=== PATIENT | male | born 1975 | race African-American/Black ===

== ENCOUNTER 2020-02-27 22:41 | Inpatient (IN) ==
[2020-02-27] MEDS ORDERED: ACETAMINOPHEN 1,000 MG/100 ML VIAL IV STA (22:54)
[2020-02-27] MEDS ORDERED: DEXAMETHASONE SOD INJ 10 MG/ML VIAL IV ONE (22:56)
[2020-02-27] MEDS ORDERED: ALBUTEROL HFA 8 GM INHALER INH ONE (22:56)
[2020-02-27] MEDS ORDERED: SODIUM CHLORIDE 0.9% 1000ML 1,000 ML IV ONE (23:14)
--- NOTE | 2020-02-27 23:24 | Emergency Department Note ---
History of Present Illness General Chief complaint: Shortness of Breath/Dyspnea Stated complaint: ILLNESS, WEAKNESS, COUGH, CHEST DISCOMFORT Time Seen by Provider: 02/27/20 22:48 History of Present Illness This 44-year-old presents to the ER complaining of respiratory problems Location: Chest Quality: Breathing Severity: Moderate Duration: Past 6 days Timing: Started 6 days ago Context: Symptoms got worse and patient came in Modifying factors: better with rest; worse with activity Patient complains of loss of taste, loss of smell, cough, congestion, fever, chills, flulike illness. The is mildly sick. He is a garbage truck driver. He has been driving up to [place] and [facility] and resides in [place]. Patient does not smoke. Patient has diabetes blood pressure and a history of CVA. He is noncompliant with medications. Home Medications Medication Instructions Recorded Confirmed Type aspirin [Ela Chewable Aspirin] 81 mg PO DAILY 02/28/20 02/28/20 History Allergies Allergy/AdvReac Type Severity Reaction Status Date / Time No Known Allergies Allergy Unverified 02/28/20 00:53 Past Med/Surg History Medical History Diabetes High blood pressure Surgical History No pertinent past surgical history Social History Smoking Status: Never smoker Hx Substance Use: No Preferred Language: Belarusian Feels Safe at Home: Yes Review of Systems A total of 10 systems reviewed and were otherwise negative Physical Exam Vital Signs Vital Signs - 24 hr 02/27/20 23:15 02/27/20 23:40 02/28/20 00:57 Temperature 39.1 C H Temperature Source Oral Pulse Rate 99 H 100 H 90 Pulse Rate from SpO2 Sensor 100 H 90 Respiratory Rate 26 H 28 H 28 H Respiratory Effort / Characteristics Accessory Muscle Use Short of Breath Blood Pressure 134/90 117/75 Blood Pressure Mean 104 89 Pulse Oximetry 95 94 93 Oxygen Delivery Method Non-rebreather Oxygen Flow Rate 15 15 15 Sepsis Recent Fever Within 48 Hours Yes Sepsis New/Unexplained Change in Mental Status N/A Sepsis Action Taken by Nursing No Action Required 02/28/20 01:00 02/28/20 01:01 Temperature Temperature Source Pulse Rate 85 83 Pulse Rate from SpO2 Sensor 86 84 Respiratory Rate 28 H 28 H Respiratory Effort / Characteristics Blood Pressure 133/81 Blood Pressure Mean 95 Pulse Oximetry 94 94 Oxygen Delivery Method Non-rebreather Oxygen Flow Rate 15 15 Sepsis Recent Fever Within 48 Hours Sepsis New/Unexplained Change in Mental Status Sepsis Action Taken by Nursing VITALS: Vitals are noted on the nurse's note and reviewed by myself. Vital signs febrile and hypoxic on room air and patient was placed on nonrebreather and sats came up. GENERAL: Male who appears ill working to breathe coughing SKIN: The skin was without rashes, erythema, edema, or bruising. There is no tenting of the skin. Capillary reflex less than 2 seconds. HEAD: Normocephalic atraumatic. EARS: External auditory canals clear, tympanic membranes pearly durant without erythema or effusion bilaterally. EYES: Pupils equal round and reactive to light and accommodation. Conjunctivae without injection, sclerae without icterus. Extraocular movements intact. NOSE: Patent, turbinates without inflammation or discharge. No sinus tenderness. MOUTH: Mucous membranes mildly dry. Pharynx without erythema or exudate. Uvula midline. Airway patent. Tongue does not deviate. NECK: Supple without nuchal rigidity. No lymphadenopathy. No thyromegaly. Cervical spine is nontender. No JVD. HEART: Regular rate and rhythm LUNGS: Mild diffuse inspiratory and end expiratory wheezes, No retractions or accessory muscle use. ABDOMEN: Positive bowel sounds x 4. Normal tympanic percussion. Soft, nontender, without masses or organomegaly. Quintero sign negative. No guarding or rebound tenderness. No CVA tenderness MUSCULOSKELETAL: No muscle atrophy, erythema, or edema noted. NEURO: Patient was alert and oriented to person place and time. Normal sensation to light and sharp touch. No focal neurological deficits. Course Administered Medications Discontinued Medications Albuterol (Albuterol Hfa 8 Gm Inhaler) 2 puffs INH NOW ONE Stop: 02/27/20 22:57 Last Admin: 02/27/20 23:34 Dose: 2 puffs Documented by: [id number] Dexamethasone (Dexamethasone Sod Inj 10 Mg/Ml Vial) 6 mg IV NOW ONE Stop: 02/27/20 22:57 Last Admin: 02/27/20 23:34 Dose: 6 mg Documented by: [id number] Acetaminophen (Ofirmev) 1,000 mg in 100 mls @ 400 mls/hr IV NOW STA Stop: 02/27/20 23:08 Last Admin: 02/27/20 23:34 Dose: 400 mls/hr Documented by: [id number] Sodium Chloride (Nss 1000ml) 1,000 mls @ 999 mls/hr IV .Q1H1M ONE Stop: 02/28/20 00:14 Last Admin: 02/28/20 00:20 Dose: 999 mls/hr Documented by: [id number] Ibuprofen (Ibuprofen 800 Mg Tab) 800 mg PO NOW STA Stop: 02/27/20 23:57 Last Admin: 02/28/20 00:20 Dose: 800 mg Documented by: [id number] Medical Decision Making Medical Records Attestation: I reviewed the patient's medical records. Home Medications Current Medication List: was personally reviewed by me Laboratory Data Attestation: I reviewed the patient's lab results. Result diagrams: 02/27/20 23:45 02/27/20 23:45 Lab Results 02/27/20 02/27/20 02/27/20 Range/Units 23:43 23:45 23:45 WBC 6.32 (4.8-10.8) K/uL RBC 5.43 (4.7-6.1) M/uL Hgb 14.5 (14.0-18.0) g/dL Hct 43.1 (42-52) % MCV 79.4 L (80-100) fL MCH 26.7 (25-34) pg MCHC 33.6 (32-36) g/dL RDW Std Deviation 37.9 (36.4-46.3) fL RDW Coeff of Jose Carlos 13.2 (11.5-14.5) % Plt Count 200 (130-400) K/uL MPV 10.8 H (7.4-10.4) fL Immature Gran % (Auto) 0.2 % Neut % (Auto) 79.3 % Lymph % (Auto) 14.6 % [place] % (Auto) 5.7 % Eos % (Auto) 0.0 % Baso % (Auto) 0.2 % Neut # (Auto) 5.02 (1.4-6.5) K/uL Lymph # (Auto) 0.92 L (1.2-3.4) K/uL [place] # (Auto) 0.36 (0.11-0.59) K/uL Eos # (Auto) 0.00 (0-0.5) K/uL Baso # (Auto) 0.01 (0-0.2) K/uL Immature Gran # (Auto) 0.01 (0.00-0.02) K/uL PT (9.0-12.0) Seconds INR (0.9-1.1) APTT (21.0-31.0) Seconds PTT Ratio D-Dimer (0-500) ug/L FEU ABG pH (7.35-7.45) ABG pCO2 (35-46) mmHg ABG pO2 (80-95) mmHg ABG HCO3 (19-24) mmol/L ABG O2 Saturation (90-95) % ABG Base Excess (-9-1.8) mEq/L Lowell Test (Pos) Oxygen Given Sodium (136-145) mmol/L Potassium (3.5-5.1) mmol/L Chloride (98-107) mmol/L Carbon Dioxide (21-32) mmol/L Anion Gap (3-11) BUN (7-18) mg/dl Creatinine (0.6-1.4) mg/dl Est Cr Clr Drug Dosing ml/min Est GFR ( Amer) Est GFR (Non-Af Amer) BUN/Creatinine Ratio (10-20) Glucose (70-99) mg/dl Lactate (0.4-2.0) mmol/L Calcium (8.5-10.1) mg/dl Magnesium (1.8-2.4) mg/dl Total Bilirubin (0.2-1) mg/dl AST (15-37) U/L ALT (12-78) U/L Alkaline Phosphatase (45-117) U/L Troponin I (0-0.045) ng/ml Total Protein (6.4-8.2) gm/dl Albumin (3.4-5.0) gm/dl Globulin (2.5-4.0) gm/dl Albumin/Globulin Ratio (0.9-2) Procalcitonin (0-0.5) ng/ml COVID-19 Eval Order CovFluRsv at [facility] Blood Type O Positive Antibody Screen NEGATIVE 02/27/20 02/27/20 02/27/20 Range/Units 23:45 23:45 23:45 WBC (4.8-10.8) K/uL RBC (4.7-6.1) M/uL Hgb (14.0-18.0) g/dL Hct (42-52) % MCV (80-100) fL MCH (25-34) pg MCHC (32-36) g/dL RDW Std Deviation (36.4-46.3) fL RDW Coeff of Jose Carlos (11.5-14.5) % Plt Count (130-400) K/uL MPV (7.4-10.4) fL Immature Gran % (Auto) % Neut % (Auto) % Lymph % (Auto) % [place] % (Auto) % Eos % (Auto) % Baso % (Auto) % Neut # (Auto) (1.4-6.5) K/uL Lymph # (Auto) (1.2-3.4) K/uL [place] # (Auto) (0.11-0.59) K/uL Eos # (Auto) (0-0.5) K/uL Baso # (Auto) (0-0.2) K/uL Immature Gran # (Auto) (0.00-0.02) K/uL PT 12.1 H (9.0-12.0) Seconds INR 1.2 H (0.9-1.1) APTT 35.6 H (21.0-31.0) Seconds PTT Ratio 1.3 D-Dimer 490 (0-500) ug/L FEU ABG pH (7.35-7.45) ABG pCO2 (35-46) mmHg ABG pO2 (80-95) mmHg ABG HCO3 (19-24) mmol/L ABG O2 Saturation (90-95) % ABG Base Excess (-9-1.8) mEq/L Lowell Test (Pos) Oxygen Given Sodium 130 L (136-145) mmol/L Potassium 3.3 L (3.5-5.1) mmol/L Chloride 94 L (98-107) mmol/L Carbon Dioxide 27 (21-32) mmol/L Anion Gap 9.0 (3-11) BUN 15 (7-18) mg/dl Creatinine 1.18 (0.6-1.4) mg/dl Est Cr Clr Drug Dosing 104.1 ml/min Est GFR ( Amer) 86.5 Est GFR (Non-Af Amer) 74.6 BUN/Creatinine Ratio 13.0 (10-20) Glucose 205 H (70-99) mg/dl Lactate 1.0 (0.4-2.0) mmol/L Calcium 8.6 (8.5-10.1) mg/dl Magnesium 2.5 H (1.8-2.4) mg/dl Total Bilirubin 0.5 (0.2-1) mg/dl AST 51 H (15-37) U/L ALT 68 (12-78) U/L Alkaline Phosphatase 50 (45-117) U/L Troponin I 0.018 (0-0.045) ng/ml Total Protein 7.9 (6.4-8.2) gm/dl Albumin 3.3 L (3.4-5.0) gm/dl Globulin 4.6 H (2.5-4.0) gm/dl Albumin/Globulin Ratio 0.7 L (0.9-2) Procalcitonin (0-0.5) ng/ml COVID-19 Eval Order Blood Type Antibody Screen 02/27/20 02/28/20 Range/Units 23:45 00:12 WBC (4.8-10.8) K/uL RBC (4.7-6.1) M/uL Hgb (14.0-18.0) g/dL Hct (42-52) % MCV (80-100) fL MCH (25-34) pg MCHC (32-36) g/dL RDW Std Deviation (36.4-46.3) fL RDW Coeff of Jose Carlos (11.5-14.5) % Plt Count (130-400) K/uL MPV (7.4-10.4) fL Immature Gran % (Auto) % Neut % (Auto) % Lymph % (Auto) % [place] % (Auto) % Eos % (Auto) % Baso % (Auto) % Neut # (Auto) (1.4-6.5) K/uL Lymph # (Auto) (1.2-3.4) K/uL [place] # (Auto) (0.11-0.59) K/uL Eos # (Auto) (0-0.5) K/uL Baso # (Auto) (0-0.2) K/uL Immature Gran # (Auto) (0.00-0.02) K/uL PT (9.0-12.0) Seconds INR (0.9-1.1) APTT (21.0-31.0) Seconds PTT Ratio D-Dimer (0-500) ug/L FEU ABG pH 7.44 (7.35-7.45) ABG pCO2 39 (35-46) mmHg ABG pO2 82 (80-95) mmHg ABG HCO3 26 H (19-24) mmol/L ABG O2 Saturation 96.2 H (90-95) % ABG Base Excess 1.7 (-9-1.8) mEq/L Lowell Test Pos (Pos) Oxygen Given 15L Sodium (136-145) mmol/L Potassium (3.5-5.1) mmol/L Chloride (98-107) mmol/L Carbon Dioxide (21-32) mmol/L Anion Gap (3-11) BUN (7-18) mg/dl Creatinine (0.6-1.4) mg/dl Est Cr Clr Drug Dosing ml/min Est GFR ( Amer) Est GFR (Non-Af Amer) BUN/Creatinine Ratio (10-20) Glucose (70-99) mg/dl Lactate (0.4-2.0) mmol/L Calcium (8.5-10.1) mg/dl Magnesium (1.8-2.4) mg/dl Total Bilirubin (0.2-1) mg/dl AST (15-37) U/L ALT (12-78) U/L Alkaline Phosphatase (45-117) U/L Troponin I (0-0.045) ng/ml Total Protein (6.4-8.2) gm/dl Albumin (3.4-5.0) gm/dl Globulin (2.5-4.0) gm/dl Albumin/Globulin Ratio (0.9-2) Procalcitonin 0.14 (0-0.5) ng/ml COVID-19 Eval Order Blood Type Antibody Screen Imaging Data Attestation: I personally reviewed and interpreted this imaging study as follows : MDM Narrative Prior records/ancillary studies reviewed. Triage Nursing notes reviewed. Additional history obtained from EMS. The patient's history was concerning for fever. Differential diagnosis: Etiologies such as viral syndrome, otitis, pharyngitis, pneumonia, influenza, meningitis, urinary tract infection, sepsis, bacteremia, as well as others were entertained. Physical examination: As above ER treatment provided: An order was placed for continuous cardiac monitoring. The monitor shows a rate of 60-1 20 with a sinus rhythm. IV fluids, Tylenol, albuterol, Decadron On reassessment the patient felt better. Diagnostics interpreted by me: ECG: Normal sinus, normal intervals, right axis deviation, impression sinus tachycardia interpreted by myself EKG ordered for dyspnea I think arrhythmia is unlikely. EKG shows normal sinus rhythm with no interval abnormalities such as QT prolongation or WPW. There are no findings to suggest Brugada syndrome. Cardiac monitoring in the emergency department reveals no tachycardic or bradycardic dysrhythmia. Hypertrophic cardiomyopathy was considered but there are no clear historical elements pointing toward this. EKG is not suggestive. The QRS voltage is not extremely large and there are no suggestive Q waves. The labs revealed ABG reviewed. Negative infection markers Blood cultures pending D-dimer ordered for admission along with type and screen No leukocytosis. Imaging studies: Chest x-ray concerning for bilateral patchy infiltrates concerning for Covid per my interpretation Consultation: A consultation was placed with Dr. Prieto. The case was discussed and [facility] were reviewed. The patient was evaluated in the ER for further treatment. This appears to be consistent with Covid infection who is hypoxic. Patient started on oxygen. He was given steroids. He was given antipyretics. Medicine was consulted. He will be admitted. ABG was reviewed. Checks x-ray concerning for Covid. By the evaluation outlined above emergent etiologies such as otitis, pharyngitis, meningitis, urinary tract infection, sepsis, bacteremia, as well as others were deemed relatively unlikely. The pt informed about the findings as listed above. All questions were answered and pleased with the treatment. The chart was completed utilizing Balak[employer] voice recognition software. Grammatical errors, random word insertions, pronoun errors, and incomplete sentences are an occassional consequence of this system due to software limitations, ambient noise, and hardware issues. Any formal questions or concerns about the content, text, or information contained within the body of this dictation should be directly addressed to the physician veterinary assistant for c larification. Impression & Plan COVID-19 virus infection, Hypoxemia Discharge Plan Visit Data Chief Complaint: Shortness of Breath/Dyspnea Stated Complaint: ILLNESS, WEAKNESS, COUGH, CHEST DISCOMFORT ED Provider: Chintan Sen ED Midlevel Provider: Erlinda Medellin Discharge Problem: COVID-19 virus infection, Hypoxemia Patient Disposition: Admitted As Inpatient Condition: Fair Forms Stand Alone Forms: [facility] [employer] Prescriptions Prescriptions: No Action aspirin [Ela Chewable Aspirin] 81 mg Tablet,Chewable 81 mg PO DAILY RF: 0 Referrals Referrals: PCP,NO [Primary Care Provider] -
[2020-02-27 23:56] LABS: Basophils # (auto) 0.01 K/uL (0-0.2); Basophils % (auto) 0.2 %; Hematocrit (blood only) 43.1 % (42-52); Hemoglobin 14.5 g/dL (14.0-18.0); Immature Granulocytes # (auto) 0.01 K/uL (0.00-0.02); Immature Granulocytes % (auto) 0.2 %; Lymphocytes # (auto) 0.92 K/uL (1.2-3.4); Lymphocytes % (auto) 14.6 %; Mean Corpuscular Hemoglobin 26.7 pg (25-34); Mean Corpuscular Hgb Conc 33.6 g/dL (32-36); Mean Corpuscular Volume 79.4 fL (80-100); Mean Platelet Volume 10.8 fL (7.4-10.4); Monocytes # (auto) 0.36 K/uL (0.11-0.59); Monocytes % (auto) 5.7 %; Neutrophils # (auto) 5.02 K/uL (1.4-6.5); Neutrophils % (auto) 79.3 %; Platelet Count 200 K/uL (130-400); RDW Coefficient of Variation 13.2 % (11.5-14.5); RDW Standard Deviation 37.9 fL (36.4-46.3); Red Blood Count 5.43 M/uL (4.7-6.1); White Blood Count 6.32 K/uL (4.8-10.8)
[2020-02-27] MEDS ORDERED: IBUPROFEN 800 MG TAB PO STA (23:56)
[2020-02-28 00:08] LABS: D Dimer 490 ug/L FEU (0-500); INR 1.2 (0.9-1.1); Partial Thromboplastin Ratio 1.3; Partial Thromboplastin Time 35.6 Seconds (21.0-31.0); Prothrombin Time 12.1 Seconds (9.0-12.0)
[2020-02-28 00:13] LABS: Est GFR (African American) 86.5; Potassium 3.3 mmol/L (3.5-5.1)
[2020-02-28 00:14] LABS: Albumin Level 3.3 gm/dl (3.4-5.0); Calcium 8.6 mg/dl (8.5-10.1); Creatinine Clr Calc Pharmacy 104.1 ml/min; Est GFR (Non-African American) 74.6; Magnesium 2.5 mg/dl (1.8-2.4)
[2020-02-28 00:18] LABS: Albumin Globulin Ratio 0.7 (0.9-2); Bilirubin,Total 0.5 mg/dl (0.2-1); Globulin 4.6 gm/dl (2.5-4.0); Total Protein 7.9 gm/dl (6.4-8.2); Troponin I 0.018 ng/ml (0-0.045)
[2020-02-28 00:21] LABS: Base Excess ABG 1.7 mEq/L (-9-1.8); HCO3 ABG 26 mmol/L (19-24); Oxygen Saturation ABG 96.2 % (90-95); PCO2 ABG 39 mmHg (35-46); PO2 ABG 82 mmHg (80-95); pH ABG 7.44 (7.35-7.45)
[2020-02-28 00:22] LABS: Allen Test Pos (Pos)
[2020-02-28 01:04] LABS: Influenza A virus by PCR Negative (Neg); Influenza B virus by PCR Negative (Neg); RSV by PCR Negative (Neg)
[2020-02-28 01:33] LABS: SARS CoV2 RNA(COVID-19) InHosp POSITIVE (Negative)
--- NOTE | 2020-02-28 02:27 | History & Physical Report ---
Date of Service February 28, 2020 Assessment & Plan (1) Pneumonia due to COVID-19 virus: Pneumonia due to COVID-19 virus/acute respiratory failure with hypoxia- Admit to monitored bed Decadron 6 mg IV daily. Convalescent plasma, consent obtained Remdesivir IV per protocol Ceftriaxone 1 g IV daily Azithromycin 500 mg IV daily Ventolin HFA 2 puffs 4 times daily, and 2 puffs every 2 hours as needed Presently on nonrebreather mask, will change to oxygen mask, and then titrate downward as tolerated, maintaining pulse ox around 94 to 95% Present on Admission?: Yes (2) Acute respiratory failure with hypoxia: See above Present on Admission?: Yes (3) Hyperglycemia: Glucose was 206 upon admission labs. Reported history of diabetes mellitus, but no medications noted. Placed in Accu-Cheks before meals and at bedtime with NovoLog coverage per scale Check hemoglobin A1c Present on Admission?: Yes (4) Hyponatremia: Hyponatremia/hypokalemia place on NSS + KCl 20 mEq at 100 mL's per hour. Repeat laboratories in a.m. Present on Admission?: Yes (5) Hypokalemia: See above Present on Admission?: Yes History of Present Illness Chief Complaint: The patient presents to the emergency department with shortness of breath initially began 6 days ago, which is worsened over the past 24 hours. Primary Care Provider: NO PCP The patient is a 44-year-old male with no significant reported past medical history, who presents to the emergency department with shortness of breath that began 6 days ago, which has worsened significantly over the past 24 hours. He is a long-distance water truck driver, his reports that they have not gone anywhere for 6 days, remaining at a local truck stop, due to severe shortness of breath. In the emergency department, patient underwent laboratories significant for the following: INR 1.2, sodium 130, potassium 3.3, glucose 205, AST 51, albumin 3.3 and COVID-19 PCR positive. Chest x-ray showed bilateral infiltrates. Temperature was 102.4 F, and pulse ox was 83% on room air, which increased to 96% on nonrebreather mask. Allergies Allergy/AdvReac Type Severity Reaction Status Date / Time No Known Allergies Allergy Unverified 02/28/20 00:53 Home Medications Medication Instructions Recorded Confirmed Type aspirin [Eal Chewable Aspirin] 81 mg PO DAILY 02/28/20 02/28/20 History Past Med/Surg History Medical History Diabetes High blood pressure Surgical History No pertinent past surgical history Social History Smoking Status: Never smoker Hx Substance Use: No Preferred Language: Malian Feels Safe at Home: Yes Review of Systems Review of Systems: The patient denies palpitations, lower extremity swelling, sore throat, fevers, chills, sweats, nausea, vomiting, diarrhea , constipation, abdominal pain, pelvic pain, blood in urine or stool, dysuria, urinary frequency or urgency, lightheadedness, dizziness, headache, memory loss, loss of consciousness, rash, abnormal bruising or bleeding, imbalance, focal or generalized weakness, numbness or tingling in arms or legs, generalized arthralgias or myalgias, back or neck pain, or night sweats. The review of systems is otherwise negative other than for that already noted above, and at least 10 systems have been reviewed. Physical Exam Physical Exam: The patient is awake, alert and oriented 3, well developed and well nourished, normocephalic and atraumatic, lying in bed and in no acute distress. HEENT--PERRL, EOMI, mucous membranes and oropharynx normal. Neck--supple. No JVD. No bruits. Thyroid normal, trachea midline, no adenopathy. Heart--normal S1 and S2. No murmurs, rubs or gallops. Lungs--coarse breath sounds bilaterally. No respiratory distress, no accessory muscle use on nonrebreather mask. Abdomen--normal bowel sounds and soft. Nontender. Nondistended, no hernias or masses, no organomegaly. Extremities--no cyanosis or clubbing. No edema. Dermatologic--normal skin turgor, normal color, no abnormal lymph nodes, no rash. Neurologic--cranial nerves II through XII grossly intact. Rheumatologic--normal range of motion. Psychiatric--normal affect. Results & Data Results & Data ([facility]) Vital Signs (Past 12 Hours) Vital Signs Temp Pulse Resp BP Pulse Ox 02/28/20 01:45 83 29 H 112/73 94 02/28/20 01:30 86 28 H 120/75 92 02/28/20 01:15 83 28 H 115/76 94 02/28/20 01:01 83 28 H 94 02/28/20 01:00 85 28 H 133/81 94 02/28/20 00:57 90 28 H 117/75 93 02/28/20 00:20 83 L 02/27/20 23:40 100 H 28 H 94 02/27/20 23:15 102.4 F H 99 H 26 H 134/90 95 Laboratory Results Laboratory Results WBC 6.32 K/uL (4.8-10.8) 02/27/20 23:45 RBC 5.43 M/uL (4.7-6.1) 02/27/20 23:45 Hgb 14.5 g/dL (14.0-18.0) 02/27/20 23:45 Hct 43.1 % (42-52) 02/27/20 23:45 MCV 79.4 fL (80-100) L 02/27/20 23:45 MCH 26.7 pg (25-34) 02/27/20 23:45 MCHC 33.6 g/dL (32-36) 02/27/20 23:45 RDW Std Deviation 37.9 fL (36.4-46.3) 02/27/20 23:45 RDW Coeff of Jose Carlos 13.2 % (11.5-14.5) 02/27/20 23:45 Plt Count 200 K/uL (130-400) 02/27/20 23:45 MPV 10.8 fL (7.4-10.4) H 02/27/20 23:45 Immature Gran % (Auto) 0.2 % 02/27/20 23:45 Neut % (Auto) 79.3 % 02/27/20 23:45 Lymph % (Auto) 14.6 % 02/27/20 23:45 Giles % (Auto) 5.7 % 02/27/20 23:45 Eos % (Auto) 0.0 % 02/27/20 23:45 Baso % (Auto) 0.2 % 02/27/20 23:45 Neut # (Auto) 5.02 K/uL (1.4-6.5) 02/27/20 23:45 Lymph # (Auto) 0.92 K/uL (1.2-3.4) L 02/27/20 23:45 Giles # (Auto) 0.36 K/uL (0.11-0.59) 02/27/20 23:45 Eos # (Auto) 0.00 K/uL (0-0.5) 02/27/20 23:45 Baso # (Auto) 0.01 K/uL (0-0.2) 02/27/20 23:45 Immature Gran # (Auto) 0.01 K/uL (0.00-0.02) 02/27/20 23:45 PT 12.1 Seconds (9.0-12.0) H 02/27/20 23:45 INR 1.2 (0.9-1.1) H 02/27/20 23:45 APTT 35.6 Seconds (21.0-31.0) H 02/27/20 23:45 PTT Ratio 1.3 02/27/20 23:45 D-Dimer 490 ug/L FEU (0-500) 02/27/20 23:45 ABG pH 7.44 (7.35-7.45) 02/28/20 00:12 ABG pCO2 39 mmHg (35-46) 02/28/20 00:12 ABG pO2 82 mmHg (80-95) 02/28/20 00:12 ABG HCO3 26 mmol/L (19-24) H 02/28/20 00:12 ABG O2 Saturation 96.2 % (90-95) H 02/28/20 00:12 ABG Base Excess 1.7 mEq/L (-9-1.8) 02/28/20 00:12 Lowell Test Pos (Pos) 02/28/20 00:12 Oxygen Given 15L 02/28/20 00:12 Sodium 130 mmol/L (136-145) L 02/27/20 23:45 Potassium 3.3 mmol/L (3.5-5.1) L 02/27/20 23:45 Chloride 94 mmol/L (98-107) L 02/27/20 23:45 Carbon Dioxide 27 mmol/L (21-32) 02/27/20 23:45 Anion Gap 9.0 (3-11) 02/27/20 23:45 BUN 15 mg/dl (7-18) 02/27/20 23:45 Creatinine 1.18 mg/dl (0.6-1.4) 02/27/20 23:45 Est Cr Clr Drug Dosing 104.1 ml/min 02/27/20 23:45 Est GFR ( Amer) 86.5 02/27/20 23:45 Est GFR (Non-Af Amer) 74.6 02/27/20 23:45 BUN/Creatinine Ratio 13.0 (10-20) 02/27/20 23:45 Glucose 205 mg/dl (70-99) H 02/27/20 23:45 Lactate 1.0 mmol/L (0.4-2.0) 02/27/20 23:45 Calcium 8.6 mg/dl (8.5-10.1) 02/27/20 23:45 Magnesium 2.5 mg/dl (1.8-2.4) H 02/27/20 23:45 Total Bilirubin 0.5 mg/dl (0.2-1) 02/27/20 23:45 AST 51 U/L (15-37) H 02/27/20 23:45 ALT 68 U/L (12-78) 02/27/20 23:45 Alkaline Phosphatase 50 U/L (45-117) 02/27/20 23:45 Troponin I 0.018 ng/ml (0-0.045) 02/27/20 23:45 Total Protein 7.9 gm/dl (6.4-8.2) 02/27/20 23:45 Albumin 3.3 gm/dl (3.4-5.0) L 02/27/20 23:45 Globulin 4.6 gm/dl (2.5-4.0) H 02/27/20 23:45 Albumin/Globulin Ratio 0.7 (0.9-2) L 02/27/20 23:45 Procalcitonin 0.14 ng/ml (0-0.5) 02/27/20 23:45 COVID-19 Eval Order CovFluRsv at [facility] 02/27/20 23:43 COVID-19 PCR POSITIVE (Negative) A* 02/27/20 23:43 Influenza Type A (PCR) Negative (Neg) 02/27/20 23:43 Influenza Type B (PCR) Negative (Neg) 02/27/20 23:43 RSV (RT-PCR) Negative (Neg) 02/27/20 23:43 Blood Type O Positive 02/27/20 23:45 Antibody Screen NEGATIVE 02/27/20 23:45 Code Status & VTE Plan Code Status Full code VTE Prophylaxis Plan VTE Prophylaxis will be ordered: Yes PG Care Time/CCT Total # of Minutes Spent Total Time Spent with Patient: Total time spent is greater than 50% in coordination of care (as documented) at patient's floor/unit and/or counseling patient: Coding Level of Care Code 72929 Initial Inpt Care Lvl 3 Diagnoses Pneumonia due to COVID-19 virus U07.1; J12.89 Acute respiratory failure with hypoxia J96.01 Hyperglycemia R73.9 Hyponatremia E87.1 Hypokalemia E87.6
[2020-02-28] MEDS ORDERED: CARBOHYDRATES FOR HYPOGLYCEMIA PO PRN (03:36)
[2020-02-28] MEDS ORDERED: ONDANSETRON INJ 2 MG/ML 2 ML VIAL IV PRN (03:36)
[2020-02-28] MEDS ORDERED: DEXTROSE 50% 50 ML SYRINGE IV PRN (03:36)
[2020-02-28] MEDS ORDERED: GLUCOSE 10 TABS/TUBE PO PRN (03:36)
[2020-02-28] MEDS ORDERED: GLUCAGON FOR INJ 1 MG VIAL SQ PRN (03:36)
[2020-02-28] MEDS ORDERED: GLUCOSE 40% GEL 15 GM TUBE PO PRN (03:36)
[2020-02-28] MEDS ORDERED: ACETAMINOPHEN 325 MG TAB PO PRN (03:36)
[2020-02-28] MEDS ORDERED: ALBUTEROL HFA 8 GM INHALER INH PRN (03:39)
[2020-02-28] MEDS ORDERED: REMDESIVIR 200 MG in SODIUM CHLORIDE 0.9% 210 ML IV ONE (04:00)
[2020-02-28] MEDS: NSS + 20MEQ KCL 20 MEQ/1,000 ML BAG IV SCH ×2 (04:31→17:14)
[2020-02-28] MEDS: ENOXAPARIN INJ 60 MG/0.6 ML SYR SQ SCH (06:23)
[2020-02-28] MEDS: SODIUM CHLORIDE 0.9% 10ML FLUSH IV SCH (06:25)
[2020-02-28] MEDS: cefTRIAXone SODIUM 2,000 MG in DEXTROSE 5% 50 ML IV SCH (06:26)
[2020-02-28] MEDS: AZITHROMYCIN 500 MG in DEXTROSE 5% 250 ML IV SCH (06:40)
--- NOTE | 2020-02-28 06:47 | XRay Report ---
XR chest 1V portable HISTORY: 44 years-old Male SEPSIS acute sepsis COMPARISON: None TECHNIQUE: Portable AP view of the chest FINDINGS: Lungs are hypoinflated with bronchovascular crowding. Cardiac silhouette appears to be upper limits o f normal in size. There is no pneumothorax, pleural effusion or overt pulmonary edema. There are bila teral mixed interstitial and alveolar opacities throughout both lungs. Bones appear grossly intact. IMPRESSION: Bilateral mixed interstitial and alveolar opacities are suggestive of a multifocal pneumo live. Follow-up recommended to document resolution. ACT 112: Negative or not required by law. The above report was generated using voice recognition software. It may contain grammatical, syntax o r spelling errors. Electronically signed by: Sina Gaston M.D. 02/28/2020 6:46 AM
[2020-02-28] MEDS ORDERED: ALBUTEROL HFA 8 GM INHALER INH SCH (07:00)
[2020-02-28 08:10] LABS: Appearance Urine Clear (Clear); Bacteria Urine Automated Negative (Negative); Blood Urine Trace (Negative); Color Urine Dark Yellow; Epithelial Cell Urine Auto >30 /lpf (0-5); Glucose Urine UA 3+ (Negative); Ketones Urine 2+ (Negative); Leukocyte Esterase Urine Negative (Negative); Nitrite Urine Negative (Negative); Protein Urine 3+ (Negative); RBC Urine Automated 0-4 /hpf (0-4); Specific Gravity Urine 1.036 (1.000-1.030); Urobilinogen Urine Negative (Negative)
[2020-02-28 08:35] LABS: Bilirubin Urine Negative (Negative); Ictotest Urine Negative (Negative)
[2020-02-28 08:36] LABS: Cast Urine Automated >30 /lpf (0-5); Mucus Urine Present (None Prsent)
[2020-02-28 08:47] LABS: Basophils # (auto) 0.03 K/uL (0-0.2); Basophils % (auto) 0.5 %; Hematocrit (blood only) 43.3 % (42-52); Hemoglobin 14.4 g/dL (14.0-18.0); Immature Granulocytes # (auto) 0.02 K/uL (0.00-0.02); Immature Granulocytes % (auto) 0.3 %; Lymphocytes # (auto) 0.81 K/uL (1.2-3.4); Lymphocytes % (auto) 12.7 %; Mean Corpuscular Hemoglobin 26.7 pg (25-34); Mean Corpuscular Hgb Conc 33.3 g/dL (32-36); Mean Corpuscular Volume 80.2 fL (80-100); Mean Platelet Volume 10.8 fL (7.4-10.4); Monocytes # (auto) 0.26 K/uL (0.11-0.59); Monocytes % (auto) 4.1 %; Neutrophils # (auto) 5.28 K/uL (1.4-6.5); Neutrophils % (auto) 82.4 %; Platelet Count 190 K/uL (130-400); RDW Coefficient of Variation 13.3 % (11.5-14.5); RDW Standard Deviation 38.7 fL (36.4-46.3)
[2020-02-28] MEDS: dexAMETHasone 6 MG in SYRINGE 0 ML IV SCH (08:48)
[2020-02-28] MEDS: ASPIRIN 81 MG ECTAB PO SCH (08:48)
[2020-02-28 08:55] LABS: Estimated Average Glucose 258 mg/dl; Hemoglobin A1C 10.6 % (4.5-5.6)
[2020-02-28 09:06] LABS: INR 1.2 (0.9-1.1); Prothrombin Time 12.2 Seconds (9.0-12.0)
[2020-02-28] MEDS: INSULIN ASPART 100 UNITS/ML 3 ML PEN SC SCH ×4 (09:19→20:58)
[2020-02-28 09:39] LABS: Alanine Aminotransferase 65 U/L (12-78); Albumin Globulin Ratio 0.6 (0.9-2); Albumin Level 2.9 gm/dl (3.4-5.0); Alkaline Phosphatase 46 U/L (45-117); Aspartate Aminotransferase 53 U/L (15-37); BUN Creatinine Ratio 14.6 (10-20); Bilirubin,Total 0.4 mg/dl (0.2-1); Blood Urea Nitrogen 18 mg/dl (7-18); Calcium 8.6 mg/dl (8.5-10.1); Carbon Dioxide 26 mmol/L (21-32); Chloride 99 mmol/L (98-107); Creatinine Clr Calc Pharmacy 99.6 ml/min; Est GFR (African American) 82.2; Globulin 4.7 gm/dl (2.5-4.0); Glucose 272 mg/dl (70-99); Potassium 4.6 mmol/L (3.5-5.1); Sodium 133 mmol/L (136-145); Total Protein 7.6 gm/dl (6.4-8.2); Troponin I < 0.015 ng/ml (0-0.045)
--- NOTE | 2020-02-28 16:25 | History & Physical Bridge Note ---
Date of Service February 28, 2020 History & Physical Bridge Note I have examined the patient, reviewed the History & Physical and in the interval since the performance of the History & Physical I have noted the following changes of clinical significance: patient has shortness of breath at rest and he says he cannot even use the urinal without getting more short of breath his appetite is poor, it has been for the past week, he has only been drinking water he was requiring 10L oxymask most of the day, started to desaturate this afternoon, was 95% on non-rebreather will ask respiratory to place him on high flow nasal canula he is ordered convalescent plasma, it is pending he is getting Remdesivir and Dexamethasone Rocephin and Zithromax discussed with him that he may get worse before he gets better, should anticipate being her for at least a week called his to give her an update
--- NOTE | 2020-02-28 21:50 | Communication Note ---
Date of Service: February 28, 2020 Notified overnight that pt refused convalescent plasma. Resident Activity Tracking Resident Involvement: [employer] Coverage Note Care Provided: Adult Hospital Medicine
[2020-02-29] MEDS: REMDESIVIR 100 MG in SODIUM CHLORIDE 0.9% 230 ML IV SCH (04:17)
--- NOTE | 2020-02-29 04:46 | Electrocardiogram Report ---
Test Reason : Blood Pressure : / mmHG Vent. Rate : 102 BPM Atrial Rate : 102 BPM P-R Int : 160 ms QRS Dur : 096 ms QT Int : 358 ms P-R-T Axes : 062 230 -04 degrees QTc Int : 466 ms Sinus tachycardia Right superior axis deviation Cannot rule out Anterior infarct , age undetermined Abnormal ECG No previous ECGs available Confirmed by Pj Matthews ([id number]) on 02/29/2020 4:46:29 AM Referred By: REFERRED SELF Confirmed By:Pj Matthews
[2020-02-29] MEDS: ENOXAPARIN INJ 60 MG/0.6 ML SYR SQ SCH (05:31)
[2020-02-29] MEDS: cefTRIAXone SODIUM 2,000 MG in DEXTROSE 5% 50 ML IV SCH (05:31)
[2020-02-29] MEDS: SODIUM CHLORIDE 0.9% 10ML FLUSH IV SCH (05:31)
[2020-02-29] MEDS: NSS + 20MEQ KCL 20 MEQ/1,000 ML BAG IV SCH ×2 (06:17→18:10)
[2020-02-29] MEDS: AZITHROMYCIN 500 MG in DEXTROSE 5% 250 ML IV SCH (06:18)
[2020-02-29 07:16] LABS: Basophils # (auto) 0.02 K/uL (0-0.2); Basophils % (auto) 0.2 %; Hematocrit (blood only) 41.3 % (42-52); Hemoglobin 13.7 g/dL (14.0-18.0); Immature Granulocytes # (auto) 0.03 K/uL (0.00-0.02); Immature Granulocytes % (auto) 0.3 %; Lymphocytes # (auto) 1.07 K/uL (1.2-3.4); Lymphocytes % (auto) 10.1 %; Mean Corpuscular Hemoglobin 26.7 pg (25-34); Mean Corpuscular Hgb Conc 33.2 g/dL (32-36); Mean Corpuscular Volume 80.5 fL (80-100); Mean Platelet Volume 11.2 fL (7.4-10.4); Monocytes # (auto) 0.62 K/uL (0.11-0.59); Monocytes % (auto) 5.9 %; Neutrophils # (auto) 8.82 K/uL (1.4-6.5); Neutrophils % (auto) 83.5 %; Platelet Count 227 K/uL (130-400); RDW Coefficient of Variation 13.4 % (11.5-14.5); RDW Standard Deviation 39.7 fL (36.4-46.3); Red Blood Count 5.13 M/uL (4.7-6.1); White Blood Count 10.56 K/uL (4.8-10.8)
[2020-02-29 07:29] LABS: INR 1.2 (0.9-1.1); Partial Thromboplastin Ratio 1.1; Partial Thromboplastin Time 31.3 Seconds (21.0-31.0); Prothrombin Time 12.5 Seconds (9.0-12.0)
[2020-02-29 07:44] LABS: BUN Creatinine Ratio 20.3 (10-20); Calcium 8.5 mg/dl (8.5-10.1); Creatinine Clr Calc Pharmacy 123.7 ml/min; Est GFR (African American) 106.9; Est GFR (Non-African American) 92.2; Magnesium 2.8 mg/dl (1.8-2.4)
[2020-02-29 07:47] LABS: Albumin Globulin Ratio 0.7 (0.9-2); Bilirubin,Total 0.4 mg/dl (0.2-1); Globulin 4.3 gm/dl (2.5-4.0); Total Protein 7.3 gm/dl (6.4-8.2)
[2020-02-29] MEDS: ASPIRIN 81 MG ECTAB PO SCH (08:09)
[2020-02-29] MEDS: dexAMETHasone 6 MG in SYRINGE 0 ML IV SCH (08:09)
[2020-02-29] MEDS: INSULIN ASPART 100 UNITS/ML 3 ML PEN SC SCH ×4 (09:09→20:49)
[2020-02-29] MEDS ORDERED: LORazepam 0.5 MG/1 ML VIAL IV STA (09:21)
[2020-02-29] MEDS: LORazepam 1 MG/2 ML VIAL IV PRN (15:58)
--- NOTE | 2020-02-29 16:53 | Hospitalist Progress Note ---
Date of Service February 29, 2020 Assessment & Plan (1) Pneumonia due to COVID-19 virus: Pneumonia due to COVID-19 virus/acute respiratory failure with hypoxia- Admit to monitored bed Decadron 6 mg IV daily. Convalescent plasma, consent obtained Remdesivir IV per protocol Ceftriaxone 1 g IV daily Azithromycin 500 mg IV daily Ventolin HFA 2 puffs 4 times daily, and 2 puffs every 2 hours as needed Blood cx pending (2) Acute respiratory failure with hypoxia: See above (3) Hyperglycemia: Glucose was 206 upon admission labs. Reported history of diabetes mellitus, but no medications noted. Placed in Accu-Cheks before meals and at bedtime with NovoLog coverage per scale A1c pending (4) Hyponatremia: Hyponatremia/hypokalemia place on NSS + KCl 20 mEq at 100 mL's per hour. Repeat laboratories in a.m. (5) Hypokalemia: See above (6) Hypomagnesemia: Monitor (7) DVT prophylaxis: Lovenox for DVT proph Admission and Anticipated Discharge Date Admission Date: February 28, 2020 Subjective Pt is SOB with exertion, but not at rest. He feels overall improved from yesterday, but still not his usual. Ongoing cough. Tolerating PO without issue. Pt denies fever, SOB, chest pain, abd pain, n/v/c/d, LE pain or swelling. Review of Systems Review of Systems: Pertinent positives and negatives reviewed in HPI--all others negative Physical Exam Constitutional: WD/WN, vitals as above Eyes: normal visual waller by confrontation and + anicteric sclerae Neck: normal visual inspection and trachea midline Respiratory: normal respiratory effort; no respiratory distress Auscultation: + crackles; no wheezes Cardiovascular: Rate/Rhythm: regular rate and regular rhythm Extremities: no edema Gastrointestinal (Abdomen): Inspection/Auscultation: abdomen not distended Percussion/Palpation: abdomen soft; abdomen nontender Musculoskeletal: Head/Neck/Chest: normocephalic and head atraumatic peripheral pulses intact Skin: no rashes, warm and dry Neurologic: awake; not confused Speech / Cognition: normal speech Psychiatric: A+Ox3, euthymic affect Results & Data Results & Data ([facility]) Vital Signs (Past 12 Hours) Vital Signs Temp Pulse Pulse Pulse Resp BP Pulse Ox 02/29/20 15:43 115 H 22 84 L 02/29/20 15:00 37.1 C 83 20 132/84 91 02/29/20 11:41 73 18 94 02/29/20 10:59 37.0 C 77 34 H 133/82 92 02/29/20 08:00 26 H 02/29/20 07:59 37.1 C 87 30 H 131/84 90 02/29/20 07:48 90 18 94 02/29/20 07:00 91 H Pulse Ox 02/29/20 15:43 02/29/20 15:00 02/29/20 11:41 02/29/20 10:59 02/29/20 08:00 90 02/29/20 07:59 02/29/20 07:48 02/29/20 07:00 PG Care Time/CCT Total # of Minutes Spent Total Time Spent with Patient: Total time spent is greater than 50% in coordination of care (as documented) at patient's floor/unit and/or counseling patient: Coding Level of Care Code 37922 Subseq Hosp Care Lvl 3 Diagnoses Pneumonia due to COVID-19 virus U07.1; J12.89 Acute respiratory failure with hypoxia J96.01 Hyperglycemia R73.9 Hyponatremia E87.1 Hypokalemia E87.6 Hypomagnesemia E83.42 DVT prophylaxis Z29.9
[2020-02-29] MEDS ORDERED: PHARMACY GLYCEMIC MGMT CONSULT PRN (21:12)
[2020-02-29] MEDS ORDERED: INSULIN GLARGINE SOLOSTAR 100 UNITS/ML 3 ML PEN SC ONE (22:00)
[2020-03-01] MEDS: INSULIN ASPART 100 UNITS/ML 3 ML PEN SC SCH ×6 (01:16→21:41)
[2020-03-01] MEDS: REMDESIVIR 100 MG in SODIUM CHLORIDE 0.9% 230 ML IV SCH (04:50)
[2020-03-01] MEDS: SODIUM CHLORIDE 0.9% 10ML FLUSH IV SCH (04:51)
[2020-03-01] MEDS: AZITHROMYCIN 500 MG in DEXTROSE 5% 250 ML IV SCH (06:13)
[2020-03-01] MEDS: cefTRIAXone SODIUM 2,000 MG in DEXTROSE 5% 50 ML IV SCH (06:13)
[2020-03-01] MEDS: ENOXAPARIN INJ 60 MG/0.6 ML SYR SQ SCH (06:16)
[2020-03-01] MEDS: NSS + 20MEQ KCL 20 MEQ/1,000 ML BAG IV SCH ×2 (06:17→17:49)
[2020-03-01 06:47] LABS: Hematocrit (blood only) 40.6 % (42-52); Hemoglobin 13.3 g/dL (14.0-18.0); Mean Corpuscular Hemoglobin 26.7 pg (25-34); Mean Corpuscular Hgb Conc 32.8 g/dL (32-36); Mean Corpuscular Volume 81.4 fL (80-100); Mean Platelet Volume 10.7 fL (7.4-10.4); Nucleated RBC # (auto) 0.02 K/uL (0-0); Nucleated RBC % (auto) 0.2 %; Platelet Count 251 K/uL (130-400); RDW Coefficient of Variation 13.8 % (11.5-14.5); RDW Standard Deviation 41.4 fL (36.4-46.3); Red Blood Count 4.99 M/uL (4.7-6.1); White Blood Count 8.86 K/uL (4.8-10.8)
[2020-03-01 07:01] LABS: INR 1.2 (0.9-1.1); Partial Thromboplastin Ratio 0.8; Partial Thromboplastin Time 23.6 Seconds (21.0-31.0); Prothrombin Time 12.4 Seconds (9.0-12.0)
[2020-03-01 07:13] LABS: Albumin Level 2.8 gm/dl (3.4-5.0); BUN Creatinine Ratio 23.8 (10-20); Calcium 8.2 mg/dl (8.5-10.1); Creatinine Clr Calc Pharmacy 137.4 ml/min; Est GFR (African American) 121.1; Est GFR (Non-African American) 104.5; Magnesium 2.7 mg/dl (1.8-2.4); Potassium 4.2 mmol/L (3.5-5.1)
[2020-03-01 07:15] LABS: Albumin Globulin Ratio 0.7 (0.9-2); Bilirubin,Total 0.5 mg/dl (0.2-1); Globulin 4.1 gm/dl (2.5-4.0); Total Protein 6.9 gm/dl (6.4-8.2)
[2020-03-01 07:18] LABS: Basophils # (auto) 0.05 K/uL (0-0.2); Basophils % (auto) 0.6 %; Immature Granulocytes # (auto) 0.06 K/uL (0.00-0.02); Immature Granulocytes % (auto) 0.7 %; Lymphocytes # (auto) 1.08 K/uL (1.2-3.4); Lymphocytes % (auto) 12.2 %; Monocytes % (auto) 6.8 %; Neutrophils # (auto) 7.07 K/uL (1.4-6.5); Neutrophils % (auto) 79.7 %
[2020-03-01] MEDS: dexAMETHasone 6 MG in SYRINGE 0 ML IV SCH (08:08)
[2020-03-01] MEDS: ASPIRIN 81 MG ECTAB PO SCH (08:09)
[2020-03-01] MEDS ORDERED: INSULIN HUMAN NPH SC SCH (09:00)
--- NOTE | 2020-03-01 11:20 | Pharmacy Report ---
Pharmacy Glycemic Short Note 2 - Date of Service March 01, 2020 - Glycemic Short BSG Results (Last 24 hours): 02/29/20 02/29/20 02/29/20 11:41 16:41 20:40 Glucose POC Glucose 220 H 288 H 263 H 03/01/20 03/01/20 03/01/20 00:13 04:44 06:06 Glucose 216 H POC Glucose 224 H 187 H 03/01/20 08:02 Glucose POC Glucose 223 H OUTPATIENT ANTIDIABETIC REGIMEN: * N/A * A1c of 10.6% on 02/28/20 ASSESSMENT: * 44 yo male with with poor degree of outpatient diabetes control per A1c. Pt with no reported outpatient antidiabetic medications * Pt with sustained hyperglycemia yesterday secondary to undiagnosed DM, stress, infection, and steroids (dexamethasone). * Pt will need glargine for basal insulin needs, NPH for steroid induced hyperglycemia, and NovoLog for prandial insulin needs. * NPH insulin is used to counteract the hyperglycemic effect of once daily steroids The rationale for this approach is that the pharmacodynamics profile of NPH, with a peak effect of 4-8hrs and duration of action of 12-16hrs, mirrors the pharmacodynamics of once daily steroids. NPH should be dosed at the same time that DXM is given * The dose of NPH given is dependent on the steroid dose given * For doses of prednisone 40mg/day (or equivalent steroid ) or above NPH dose should be 0.4 units/kg. * Will start slightly lower since patient is insulin niave - do not want to induce hypo on a patient who will most likely be discharged home with an outpatient insulin regimen (new to insulin). * NPH dosing above is given in addition to patients basal insulin needs * Typically, patients will also need rapid-acting insulin with meals * Will continue to titrate insulin dosing with each step down in steroid dosing PLAN FOR INPATIENT GLYCEMIC CONTROL: * Basal insulin * Lantus 30 units SQ HS * Steroid induced hyperglycemi * NPH 30 units (0.3 units/kg) SQ daily with DXM * Bolus insulin * NovoLog per scale ACHS or Q6hrs while NPO * Goal Range: Low 110 mg/dL - High 140 mg/dL * Correction Factor: 20 mg/dL/unit * Nutritional / Prandial insulin per carb ratio of 1 unit per 7 grams CHO consumed PLAN FOR DISCHARGE: * A1c = 10.6 % on 02/28/20 * Goal A1c = <7 % based on age and comorbidities * A reasonable A1C goal for many non- adults is A1c less than 7% * A1c is between 8% and 10% consider dual combination therapy * Metformin + additional agent listed below. (B12 supplementation may be necessary with skilled nursing metformin) * Additional agent chosen should be based on co-morbidities. Since patient without any compelling indication may consider choosing agent based on cost or side effect profile. * Could consider: * GLP-1 RA: Decreases major adverse cardiovascular events, high efficacy, low hypo risk, weight loss, significant GI side effects (titrate low and slow), high cost * SGLT-2i: Decreases major adverse cardiovascular events, intermediate efficacy, low hypo risk, weight loss, /dehydration side effects, high cost * DPP-4i: intermediate efficacy (not efficacious for long-standing DM), low hypo risk, weight neutral, Increases risk of heart failure (Alogliptin, Saxagliptin) rare side effects (well tolerated), high cost * TZD: high efficacy, low hypo risk, weight gain, significant side effects (edema, HF, fxs), low cost * Basal insulin: high efficacy, hypo risk, weight gain, well tolerated, cost dependent on agent chosen (NPH low cost, all others high cost) * Support Patient Self-Management Healthy Lifestyle (diet, exercise, and smoking cessation if applicable) Disease self-management (SMBG) Prevention of complications (BP, Lipid goals, Immunizations) Consider outpatient Diabetes Self-Management Education & Support
--- NOTE | 2020-03-01 13:04 | Hospitalist Progress Note ---
Date of Service March 01, 2020 Assessment & Plan (1) Pneumonia due to COVID-19 virus: Pneumonia due to COVID-19 virus/acute respiratory failure with hypoxia- Admit to monitored bed Decadron 6 mg IV daily starting 02/27 Convalescent plasma, consent obtained Remdesivir IV per protocol, starting 02/27 Ceftriaxone 1 g IV daily Azithromycin 500 mg IV daily Ventolin HFA 2 puffs 4 times daily, and 2 puffs every 2 hours as needed Blood cx neg (2) Acute respiratory failure with hypoxia: See above (3) Hyperglycemia: Glucose was 206 upon admission labs. Reported history of diabetes mellitus, but no medications noted. Placed in Accu-Cheks before meals and at bedtime with NovoLog coverage per scale A1c pending 10.6 (4) Hyponatremia: Hyponatremia/hypokalemia place on NSS + KCl 20 mEq at 100 mL's per hour. Repeat laboratories in a.m. (5) Hypokalemia: See above (6) Hypomagnesemia: Monitor (7) DVT prophylaxis: Lovenox for DVT proph Admission and Anticipated Discharge Date Admission Date: February 28, 2020 Subjective Pt is still with ORDOÑEZ, but no SOB at rest. His appetite is low today. He did eat some, but not as much as yesterday. Pt denies fever, chest pain, abd pain, n/v/c/d, LE pain or swelling. Review of Systems Review of Systems: Pertinent positives and negatives reviewed in HPI--all others negative Physical Exam Constitutional: WD/WN, vitals as above Eyes: normal visual waller by confrontation and + anicteric sclerae Neck: normal visual inspection and trachea midline Respiratory: normal respiratory effort; no respiratory distress Auscultation: + crackles (trace, improving); no wheezes Cardiovascular: Rate/Rhythm: regular rate and regular rhythm Extremities: no edema Gastrointestinal (Abdomen): Inspection/Auscultation: abdomen not distended Percussion/Palpation: abdomen soft; abdomen nontender Musculoskeletal: Head/Neck/Chest: normocephalic and head atraumatic Skin: no rashes, warm and dry Neurologic: awake; not confused Speech / Cognition: normal speech Psychiatric: A+Ox3, euthymic affect Results & Data Results & Data ([facility]) Vital Signs (Past 12 Hours) Vital Signs Temp Pulse Pulse Resp BP Pulse Ox 03/01/20 12:06 36.9 C 71 28 H 145/90 H 92 03/01/20 11:18 71 22 93 03/01/20 08:05 36.9 C 72 16 131/83 95 03/01/20 07:39 73 03/01/20 07:26 79 16 94 03/01/20 04:47 36.7 C 68 16 131/82 95 03/01/20 02:27 91 H 18 03/01/20 02:05 67 18 95 PG Care Time/CCT Total # of Minutes Spent Total Time Spent with Patient: Total time spent is greater than 50% in coordination of care (as documented) at patient's floor/unit and/or counseling patient: Coding Level of Care Code 90600 Subseq Hosp Care Lvl 3 Diagnoses Pneumonia due to COVID-19 virus U07.1; J12.89 Acute respiratory failure with hypoxia J96.01 Hyperglycemia R73.9 Hyponatremia E87.1 Hypokalemia E87.6 Hypomagnesemia E83.42 DVT prophylaxis Z29.9
[2020-03-01] MEDS ORDERED: INSULIN GLARGINE SOLOSTAR 100 UNITS/ML 3 ML PEN SC SCH (21:00)
[2020-03-02] MEDS: SODIUM CHLORIDE 0.9% 10ML FLUSH IV SCH (03:47)
[2020-03-02] MEDS: REMDESIVIR 100 MG in SODIUM CHLORIDE 0.9% 230 ML IV SCH (03:47)
[2020-03-02] MEDS: cefTRIAXone SODIUM 2,000 MG in DEXTROSE 5% 50 ML IV SCH (05:24)
[2020-03-02] MEDS: ENOXAPARIN INJ 60 MG/0.6 ML SYR SQ SCH (06:33)
[2020-03-02] MEDS: AZITHROMYCIN 500 MG in DEXTROSE 5% 250 ML IV SCH (06:34)
[2020-03-02 09:12] LABS: Partial Thromboplastin Time 26.8 Seconds (21.0-31.0)
[2020-03-02] MEDS: dexAMETHasone 6 MG in SYRINGE 0 ML IV SCH (10:16)
[2020-03-02] MEDS: NSS + 20MEQ KCL 20 MEQ/1,000 ML BAG IV SCH ×2 (10:16→22:17)
[2020-03-02] MEDS: ASPIRIN 81 MG ECTAB PO SCH (10:16)
[2020-03-02] MEDS: INSULIN HUMAN NPH SC SCH (10:46)
[2020-03-02] MEDS: INSULIN ASPART 100 UNITS/ML 3 ML PEN SC SCH ×4 (10:46→22:48)
--- NOTE | 2020-03-02 12:11 | Pharmacy Report ---
Pharmacy Glycemic Short Note 2 - Date of Service March 02, 2020 - Glycemic Short BSG Results (Last 24 hours): 03/01/20 03/01/20 03/01/20 12:03 16:55 21:37 POC Glucose 226 H 286 H 222 H 03/02/20 03/02/20 08:05 11:56 POC Glucose 173 H 138 H OUTPATIENT ANTIDIABETIC REGIMEN: * N/A * A1c of 10.6% on 02/28/20 ASSESSMENT: 03/02: * Pt has received 86 units of insulin over the past 24hrs * 30 units of basal with Lantus * 26 units of bolus with NovoLog * 30 units of NPH for steroid induced hyperglycemia * BSGs [phone] mg/dl * Regimen is evenly split/distributed appropriately for steroid induced hyperglycemia on top of baseline insulin resistance. * Pt continues on Dexamethasone 6mg IV daily --> will continue with NPH daily to cover once daily steroids. This is added to his baseline regimen. Pt received 30 units of NPH yesterday which is about 0.26 units/kg. Will increase NPH to 40 units (0.36 units/kg) since all BSGs > 200 yesterday. Will also tighten CR since steroids have their most profound effect on post-prandial hyperglycemia. * AM fasting BSG is slightly elevated - will increase basal insulin slightly. * Titrate based on BSG trends and steroid dosing 03/01: * 44 yo male with with poor degree of outpatient diabetes control per A1c. Pt with no reported outpatient antidiabetic medications * Pt with sustained hyperglycemia yesterday secondary to undiagnosed DM, stress, infection, and steroids (dexamethasone). * Pt will need glargine for basal insulin needs, NPH for steroid induced hyperglycemia, and NovoLog for prandial insulin needs. * NPH insulin is used to counteract the hyperglycemic effect of once daily steroids The rationale for this approach is that the pharmacodynamics profile of NPH, with a peak effect of 4-8hrs and duration of action of 12-16hrs, mirrors the pharmacodynamics of once daily steroids. NPH should be dosed at the same time that DXM is given * The dose of NPH given is dependent on the steroid dose given * For doses of prednisone 40mg/day (or equivalent steroid ) or above NPH dose should be 0.4 units/kg. * Will start slightly lower since patient is insulin niave - do not want to induce hypo on a patient who will most likely be discharged home with an outpatient insulin regimen (new to insulin). * NPH dosing above is given in addition to patients basal insulin needs * Typically, patients will also need rapid-acting insulin with meals * Will continue to titrate insulin dosing with each step down in steroid dosing PLAN FOR INPATIENT GLYCEMIC CONTROL: * Basal insulin: * increase Lantus from 30 to 35 units SQ HS * Steroid induced hyperglycemia * increase NPH to 40 units (0.36 units/kg) SQ daily with DXM * Bolus insulin: tighten CR from 7 to 6 * NovoLog per scale ACHS or Q6hrs while NPO * Goal Range: Low 110 mg/dL - High 140 mg/dL * Correction Factor: 20 mg/dL/unit * Nutritional / Prandial insulin per carb ratio of 1 unit per 6 grams CHO consumed PLAN FOR DISCHARGE: * A1c = 10.6 % on 02/28/20 * Goal A1c = <7 % based on age and comorbidities * A reasonable A1C goal for many adults is A1c less than 7% * A1c is between 8% and 10% consider dual combination therapy * Metformin + additional agent listed below. (B12 supplementation may be necessary with eeler metformin) * Additional agent chosen should be based on co-morbidities. Since patient without any compelling indication may consider choosing agent based on cost or side effect profile. * Could consider: * GLP-1 RA: Decreases major adverse cardiovascular events, high efficacy, low hypo risk, weight loss, significant GI side effects (titrate low and slow), high cost * SGLT-2i: Decreases major adverse cardiovascular events, intermediate efficacy, low hypo risk, weight loss, /dehydration side effects, high cost * DPP-4i: intermediate efficacy (not efficacious for long-standing DM), low hypo risk, weight neutral, Increases risk of heart failure (Alogliptin, Saxagliptin) rare side effects (well tolerated), high cost * TZD: high efficacy, low hypo risk, weight gain, significant side effects (edema, HF, fxs), low cost * Basal insulin: high efficacy, hypo risk, weight gain, well tolerated, cost dependent on agent chosen (NPH low cost, all others high cost) * Support Patient Self-Management Healthy Lifestyle (diet, exercise, and smoking cessation if applicable) Disease self-management (SMBG) Prevention of complications (BP, Lipid goals, Immunizations) Consider outpatient Diabetes Self-Management Education & Support
--- NOTE | 2020-03-02 13:19 | Hospitalist Progress Note ---
Date of Service March 02, 2020 Assessment & Plan (1) Pneumonia due to COVID-19 virus: Pneumonia due to COVID-19 virus/acute respiratory failure with hypoxia- Admit to monitored bed Decadron 6 mg IV daily starting 02/27 Convalescent plasma, consent obtained, pt declined tx on admission however Remdesivir IV per protocol, starting 02/27 Ceftriaxone 1 g IV daily Azithromycin 500 mg IV daily Ventolin HFA 2 puffs 4 times daily, and 2 puffs every 2 hours as needed Blood cx neg O2 reqs improving, pt looks overall better today (2) Acute respiratory failure with hypoxia: See above (3) Hyperglycemia: Glucose was 206 upon admission labs. Reported history of diabetes mellitus, but no medications noted. Placed in Accu-Cheks before meals and at bedtime with NovoLog coverage per scale A1c pending 10.6 (4) Hyponatremia: Hyponatremia/hypokalemia place on NSS + KCl 20 mEq at 100 mL's per hour. Repeat laboratories in a.m. (5) Hypokalemia: See above (6) Hypomagnesemia: Monitor (7) DVT prophylaxis: Lovenox for DVT proph CM to assist in MA paperwork Admission and Anticipated Discharge Date Admission Date: February 28, 2020 Subjective Pt has not been OOB to assess his ORDOÑEZ, but feels his breathing at rest has gotten better. Not SOB at all, even with turning on his side. He feels a bit better today in general. His appetite continues to be poor. He did eat some, but not much again today. Pt denies fever, chest pain, abd pain, n/v/c/d, LE pain or swelling. Review of Systems Review of Systems: Pertinent positives and negatives reviewed in HPI--all others negative Physical Exam Constitutional: WD/WN, vitals as above Eyes: normal visual waller by confrontation and + anicteric sclerae Neck: normal visual inspection and trachea midline Respiratory: normal respiratory effort; no respiratory distress A uscultation: + crackles (trace, improving); no wheezes Cardiovascular: Rate/Rhythm: regular rate and regular rhythm Extremities: no edema Gastrointestinal (Abdomen): Inspection/Auscultation: abdomen not distended Percussion/Palpation: abdomen soft; abdomen nontender Musculoskeletal: Head/Neck/Chest: normocephalic and head atraumatic Skin: no rashes, warm and dry Neurologic: awake; not confused Speech / Cognition: normal speech Psychiatric: A+Ox3, euthymic affect Results & Data Results & Data ([facility]) Vital Signs (Past 12 Hours) Vital Signs Temp Pulse Pulse Resp BP Pulse Ox 03/02/20 12:10 36.8 C 66 20 143/88 H 93 03/02/20 08:14 36.9 C 66 16 145/88 H 93 03/02/20 08:04 67 20 95 03/02/20 08:00 55 L 93 03/02/20 03:51 18 94 03/02/20 03:50 36.8 C 64 18 137/89 94 03/02/20 02:20 46 L 20 94 PG Care Time/CCT Total # of Minutes Spent Total Time Spent with Patient: Total time spent is greater than 50% in coordination of care (as documented) at patient's floor/unit and/or counseling patient: Coding Level of Care Code 91581 Subseq Hosp Care Lvl 3 Diagnoses Pneumonia due to COVID-19 virus U07.1; J12.89 Acute respiratory failure with hypoxia J96.01 Hyperglycemia R73.9 Hyponatremia E87.1 Hypokalemia E87.6 Hypomagnesemia E83.42 DVT prophylaxis Z29.9
[2020-03-02] MEDS: INSULIN GLARGINE SOLOSTAR 100 UNITS/ML 3 ML PEN SC SCH (22:48)
[2020-03-03] MEDS: REMDESIVIR 100 MG in SODIUM CHLORIDE 0.9% 230 ML IV SCH (04:34)
[2020-03-03] MEDS: SODIUM CHLORIDE 0.9% 10ML FLUSH IV SCH (05:52)
[2020-03-03] MEDS: cefTRIAXone SODIUM 2,000 MG in DEXTROSE 5% 50 ML IV SCH (05:56)
[2020-03-03] MEDS: ENOXAPARIN INJ 60 MG/0.6 ML SYR SQ SCH (06:05)
[2020-03-03] MEDS: AZITHROMYCIN 500 MG in DEXTROSE 5% 250 ML IV SCH (06:28)
[2020-03-03] MEDS: NSS + 20MEQ KCL 20 MEQ/1,000 ML BAG IV SCH ×2 (08:42→20:38)
[2020-03-03] MEDS: ASPIRIN 81 MG ECTAB PO SCH (08:44)
[2020-03-03] MEDS: dexAMETHasone 6 MG in SYRINGE 0 ML IV SCH (08:44)
[2020-03-03] MEDS: INSULIN ASPART 100 UNITS/ML 3 ML PEN SC SCH ×4 (09:01→20:48)
[2020-03-03] MEDS: INSULIN HUMAN NPH SC SCH (09:02)
[2020-03-03] MEDS: INSULIN GLARGINE SOLOSTAR 100 UNITS/ML 3 ML PEN SC SCH (20:48)
--- NOTE | 2020-03-03 21:41 | Hospitalist Progress Note ---
Date of Service March 03, 2020 Assessment & Plan (1) Pneumonia due to COVID-19 virus: Pneumonia due to COVID-19 virus/acute respiratory failure with hypoxia- Admit to monitored bed Decadron 6 mg IV daily starting 02/27 Convalescent plasma, consent obtained, pt declined tx on admission however Remdesivir IV per protocol, starting 02/27 completed today. Ceftriaxone 1 g IV daily Azithromycin 500 mg IV daily Ventolin HFA 2 puffs 4 times daily, and 2 puffs every 2 hours as needed Blood cx neg O2 reqs improving, mild improveemnt Will recommend proning. (2) Acute respiratory failure with hypoxia: See above (3) Hyperglycemia: Glucose was 206 upon admission labs. Reported history of diabetes mellitus, but no medications noted. Placed in Accu-Cheks before meals and at bedtime with NovoLog coverage per scale A1c pending 10.6 (4) Hyponatremia: sodium improving. (5) Hypokalemia: See above (6) Hypomagnesemia: Monitor (7) DVT prophylaxis: Lovenox for DVT proph CM to assist in MA paperwork Admission and Anticipated Discharge Date Admission Date: February 28, 2020 Subjective Patient reports feeling well. He has no new complaints at this time. Review of Systems Review of Systems: All systems reviewed & are unremarkable except as noted in HPI & below Physical Exam Physical Exam: Constitutional: WD/WN, vitals as above Eyes: normal visual waller by confrontation and + anicteric sclerae Neck: normal visual inspection and trachea midline Respiratory: normal respiratory effort; no respiratory distress Auscultation: no wheezes Cardiovascular: Rate/Rhythm: regular rate and regular rhythm Extremities: no edema Gastrointestinal (Abdomen): Inspection/Auscultation: abdomen not distended Percussion/Palpation: abdomen soft; abdomen nontender Musculoskeletal: Head/Neck/Chest: normocephalic and head atraumatic Skin: no rashes, warm and dry Neurologic: awake; not confused Speech / Cognition: normal speech Psychiatric: A+Ox3, euthymic affect Results & Data Results & Data ([facility]) Vital Signs (Past 12 Hours) Vital Signs Temp Pulse Pulse Resp BP Pulse Ox 03/03/20 21:01 16 03/03/20 21:00 98 03/03/20 20:40 36.5 C 57 L 16 153/96 H 96 03/03/20 15:43 70 03/03/20 15:39 36.4 C L 65 22 146/78 H 92 03/03/20 11:30 36.4 C L 56 L 22 154/89 H 92 PG Care Time/CCT Total # of Minutes Spent Total Time Spent with Patient: Total time spent is greater than 50% in coordination of care (as documented) at patient's floor/unit and/or counseling patient: Coding Level of Care Code 42320 Subseq Hosp Care Lvl 3 Diagnoses Pneumonia due to COVID-19 virus U07.1; J12.89 Acute respiratory failure with hypoxia J96.01 Hyperglycemia R73.9 Hyponatremia E87.1 Hypokalemia E87.6 Hypomagnesemia E83.42 DVT prophylaxis Z29.9
[2020-03-04] MEDS: cefTRIAXone SODIUM 2,000 MG in DEXTROSE 5% 50 ML IV SCH (04:51)
[2020-03-04] MEDS: ENOXAPARIN INJ 60 MG/0.6 ML SYR SQ SCH (04:56)
[2020-03-04] MEDS: AZITHROMYCIN 500 MG in DEXTROSE 5% 250 ML IV SCH (05:42)
[2020-03-04] MEDS: ASPIRIN 81 MG ECTAB PO SCH (08:29)
[2020-03-04] MEDS: dexAMETHasone 6 MG in SYRINGE 0 ML IV SCH (08:29)
[2020-03-04] MEDS: NSS + 20MEQ KCL 20 MEQ/1,000 ML BAG IV SCH ×2 (08:29→20:59)
[2020-03-04] MEDS: INSULIN ASPART 100 UNITS/ML 3 ML PEN SC SCH ×4 (08:46→20:50)
[2020-03-04] MEDS: INSULIN HUMAN NPH SC SCH (08:47)
[2020-03-04 09:35] LABS: Basophils # (auto) 0.01 K/uL (0-0.2); Basophils % (auto) 0.1 %; Eosinophils # (auto) 0.03 K/uL (0-0.5); Eosinophils % (auto) 0.4 %; Hematocrit (blood only) 43.7 % (42-52); Hemoglobin 14.4 g/dL (14.0-18.0); Immature Granulocytes # (auto) 0.11 K/uL (0.00-0.02); Immature Granulocytes % (auto) 1.3 %; Lymphocytes # (auto) 2.68 K/uL (1.2-3.4); Lymphocytes % (auto) 32.6 %; Mean Corpuscular Hemoglobin 26.6 pg (25-34); Mean Corpuscular Volume 80.8 fL (80-100); Mean Platelet Volume 10.3 fL (7.4-10.4); Monocytes # (auto) 0.39 K/uL (0.11-0.59); Monocytes % (auto) 4.7 %; Neutrophils % (auto) 60.9 %; Platelet Count 307 K/uL (130-400); RDW Coefficient of Variation 13.6 % (11.5-14.5); RDW Standard Deviation 40.4 fL (36.4-46.3); Red Blood Count 5.41 M/uL (4.7-6.1); White Blood Count 8.22 K/uL (4.8-10.8)
[2020-03-04 09:50] LABS: D Dimer 840 ug/L FEU (0-500)
[2020-03-04 09:55] LABS: BUN Creatinine Ratio 14.1 (10-20); Calcium 8.8 mg/dl (8.5-10.1); Creatinine Clr Calc Pharmacy 114.3 ml/min; Est GFR (African American) 101.9; Est GFR (Non-African American) 87.9; Magnesium 2.3 mg/dl (1.8-2.4); Potassium 3.6 mmol/L (3.5-5.1)
[2020-03-04 10:00] LABS: Ferritin 727.2 ng/ml (8-388); Phosphorus 4.5 mg/dl (2.5-4.9)
[2020-03-04] MEDS: LORazepam 1 MG/2 ML VIAL IV PRN (21:24)
[2020-03-04] MEDS: INSULIN GLARGINE SOLOSTAR 100 UNITS/ML 3 ML PEN SC SCH (22:03)
--- NOTE | 2020-03-04 22:29 | Hospitalist Progress Note ---
Date of Service March 04, 2020 Assessment & Plan (1) Pneumonia due to COVID-19 virus: Pneumonia due to COVID-19 virus/acute respiratory failure with hypoxia- Admit to monitored bed Decadron 6 mg IV daily starting 02/27 Convalescent plasma, consent obtained, pt declined tx on admission however Remdesivir IV per protocol, starting 02/27 completed today. Ceftriaxone 1 g IV daily Azithromycin 500 mg IV daily Ventolin HFA 2 puffs 4 times daily, and 2 puffs every 2 hours as needed Blood cx neg O2 reqs improving, discharge is difficult as oxygen compnay is not avalable due to being closed on weekend.. will continue to monitor Will recommend proning. (2) Acute respiratory failure with hypoxia: See above (3) Hyperglycemia: Glucose was 206 upon admission labs. Reported history of diabetes mellitus, but no medications noted. Placed in Accu-Cheks before meals and at bedtime with NovoLog coverage per scale A1c pending 10.6 (4) Hyponatremia: sodium improving. (5) Hypokalemia: See above (6) Hypomagnesemia: Monitor (7) DVT prophylaxis: Lovenox for DVT proph CM to assist in MA paperwork Admission and Anticipated Discharge Date Admission Date: February 28, 2020 Subjective Patient reports no new symptoms today. Review of Systems Review of Systems: All systems reviewed & are unremarkable except as noted in HPI & below Physical Exam Physical Exam: Constitutional: WD/WN, vitals as above Eyes: normal visual waller by confrontation and + anicteric sclerae Neck: normal visual inspection and trachea midline Respiratory: normal respiratory effort; no respiratory distress Auscultation: no wheezes Cardiovascular: Rate/Rhythm: regular rate and regular rhythm Extremities: no edema Gastrointestinal (Abdomen): Inspection/Auscultation: abdomen not distended Percussion/Palpation: abdomen soft; abdomen nontender Musculoskeletal: Head/Neck/Chest: normocephalic and head atraumatic Skin: no rashes, warm and dry Neurologic: awake; not confused Speech / Cognition: normal speech Psychiatric: A+Ox3, euthymic affect Results & Data Results & Data ([facility]) Vital Signs (Past 12 Hours) Vital Signs Temp Pulse Pulse Resp BP BP Pulse Ox 03/04/20 19:34 36.8 C 121 H 18 151/97 H 88 L 03/04/20 15:53 36.6 C 74 18 139/95 100 03/04/20 15:41 101 H 03/04/20 15:32 90 03/04/20 11:56 36.6 C 56 L 16 130/83 93 Pulse Ox 03/04/20 19:34 03/04/20 15:53 03/04/20 15:41 03/04/20 15:32 90 03/04/20 11:56 PG Care Time/CCT Total # of Minutes Spent Total Time Spent with Patient: Total time spent is greater than 50% in coordination of care (as documented) at patient's floor/unit and/or counseling patient: Coding Level of Care Code 22044 Subseq Hosp Care Lvl 2 Diagnoses Pneumonia due to COVID-19 virus U07.1; J12.89 Acute respiratory failure with hypoxia J96.01 Hyperglycemia R73.9 Hyponatremia E87.1 Hypokalemia E87.6 Hypomagnesemia E83.42 DVT prophylaxis Z29.9
[2020-03-05] MEDS: cefTRIAXone SODIUM 2,000 MG in DEXTROSE 5% 50 ML IV SCH (05:40)
[2020-03-05] MEDS: AZITHROMYCIN 500 MG in DEXTROSE 5% 250 ML IV SCH (06:15)
[2020-03-05] MEDS: ENOXAPARIN INJ 60 MG/0.6 ML SYR SQ SCH (06:16)
[2020-03-05 08:45] LABS: Hematocrit (blood only) 43.2 % (42-52); Hemoglobin 14.5 g/dL (14.0-18.0); Mean Corpuscular Hgb Conc 33.6 g/dL (32-36); Mean Corpuscular Volume 80.4 fL (80-100); Mean Platelet Volume 11.3 fL (7.4-10.4); Platelet Count 370 K/uL (130-400); RDW Coefficient of Variation 13.7 % (11.5-14.5); RDW Standard Deviation 40.2 fL (36.4-46.3); Red Blood Count 5.37 M/uL (4.7-6.1); White Blood Count 10.32 K/uL (4.8-10.8)
[2020-03-05] MEDS: dexAMETHasone 6 MG in SYRINGE 0 ML IV SCH (08:50)
[2020-03-05] MEDS: ASPIRIN 81 MG ECTAB PO SCH (08:51)
--- NOTE | 2020-03-05 08:51 | Pharmacy Report ---
Pharmacy Glycemic Short Note 2 - Date of Service March 05, 2020 - Glycemic Short BSG Results (Last 24 hours): 03/04/20 03/04/20 03/04/20 09:24 11:50 16:50 Glucose 117 H POC Glucose 115 H 183 H 03/04/20 03/05/20 20:28 07:39 Glucose POC Glucose 227 H 170 H OUTPATIENT ANTIDIABETIC REGIMEN: * N/A * A1c of 10.6% on 02/28/20 ASSESSMENT: 03/05: * BSGs yesterday of 140, 115, 183, and 227 mg/dL * Patient received 108 units of insulin * 40 units of NPH (w/ dexamethasone), 35 units of Lantus, and 33 units of prandial/correctional insulin * Fasting BSG of 170 mg/dL this morning - will plan to increase Lantus dose HS * Given upward BSG trend throughout the day - will tighten Novolog parameters * Continues on dexamethasone 6 mg IV daily - will continue NPH * IV fluids (NSS + 20 KCl @80 mL/hr) infusing 03/01: * 44 yo male with with poor degree of outpatient diabetes control per A1c. Pt with no reported outpatient antidiabetic medications * Pt with sustained hyperglycemia yesterday secondary to undiagnosed DM, stress, infection, and steroids (dexamethasone). * Pt will need glargine for basal insulin needs, NPH for steroid induced hyperglycemia, and NovoLog for prandial insulin needs. * NPH insulin is used to counteract the hyperglycemic effect of once daily steroids The rationale for this approach is that the pharmacodynamics profile of NPH, with a peak effect of 4-8hrs and duration of action of 12-16hrs, mirrors the pharmacodynamics of once daily steroids. NPH should be dosed at the same time that DXM is given * The dose of NPH given is dependent on the steroid dose given * For doses of prednisone 40mg/day (or equivalent steroid ) or above NPH dose should be 0.4 units/kg. * Will start slightly lower since patient is insulin niave - do not want to induce hypo on a patient who will most likely be discharged home with an outpatient insulin regimen (new to insulin). * NPH dosing above is given in addition to patients basal insulin needs * Typically, patients will also need rapid-acting insulin with meals * Will continue to titrate insulin dosing with each step down in steroid dosing PLAN FOR INPATIENT GLYCEMIC CONTROL: * Basal insulin: * increase Lantus to 40 units SQ HS * Steroid induced hyperglycemia * continue NPH 40 units (0.36 units/kg) SQ daily with DXM * Bolus insulin: tighten carb ratio to 5 * NovoLog per scale ACHS or Q6hrs while NPO * Goal Range: Low 110 mg/dL - High 140 mg/dL * Correction Factor: 15 mg/dL/unit * Nutritional / Prandial insulin per carb ratio of 1 unit per 5 grams CHO consumed PLAN FOR DISCHARGE: * A1c = 10.6 % on 02/28/20 * Goal A1c = <7 % based on age and comorbidities * A reasonable A1C goal for many adults is A1c less than 7% * A1c is between 8% and 10% consider dual combination therapy * Metformin + additional agent listed below. (B12 supplementation may be nec essary with meterman metformin) * Additional agent chosen should be based on co-morbidities. Since patient without any compelling indication may consider choosing agent based on cost or side effect profile. * Could consider: * GLP-1 RA: Decreases major adverse cardiovascular events, high efficacy, low hypo risk, weight loss, significant GI side effects (titrate low and slow), high cost * SGLT-2i: Decreases major adverse cardiovascular events, intermediate efficacy, low hypo risk, weight loss, /dehydration side effects, high cost * DPP-4i: intermediate efficacy (not efficacious for long-standing DM), low hypo risk, weight neutral, Increases risk of heart failure (Alogliptin, Saxagliptin) rare side effects (well tolerated), high cost * TZD: high efficacy, low hypo risk, weight gain, significant side effects (edema, HF, fxs), low cost * Basal insulin: high efficacy, hypo risk, weight gain, well tolerated, cost dependent on agent chosen (NPH low cost, all others high cost) * Support Patient Self-Management Healthy Lifestyle (diet, exercise, and smoking cessation if applicable) Disease self-management (SMBG) Prevention of complications (BP, Lipid goals, Immunizations) Consider outpatient Diabetes Self-Management Education & Support
[2020-03-05] MEDS: INSULIN HUMAN NPH SC SCH (08:52)
[2020-03-05] MEDS: INSULIN ASPART 100 UNITS/ML 3 ML PEN SC SCH ×4 (08:55→20:47)
[2020-03-05 09:08] LABS: D Dimer 820 ug/L FEU (0-500)
[2020-03-05 09:12] LABS: BUN Creatinine Ratio 13.7 (10-20); Calcium 9.4 mg/dl (8.5-10.1); Creatinine Clr Calc Pharmacy 105.1 ml/min; Est GFR (African American) 92.1; Est GFR (Non-African American) 79.5
[2020-03-05 09:17] LABS: Ferritin 769.4 ng/ml (8-388)
[2020-03-05] MEDS: NSS + 20MEQ KCL 20 MEQ/1,000 ML BAG IV SCH ×2 (09:40→21:00)
--- NOTE | 2020-03-05 11:04 | Electrocardiogram Report ---
Test Reason : Blood Pressure : / mmHG Vent. Rate : 119 BPM Atrial Rate : 119 BPM P-R Int : 154 ms QRS Dur : 084 ms QT Int : 338 ms P-R-T Axes : 043 -87 000 degrees QTc Int : 475 ms Sinus tachycardia Left axis deviation Anterolateral infarct (cited on or before 27-FEB-2020) Abnormal ECG Confirmed by Dov Healy ([id number]) on 03/05/2020 11:03:50 AM Referred By: REFERRED SELF Confirmed By:Chandan Healy
--- NOTE | 2020-03-05 11:57 | XCELERA ---
[id number]
[2020-03-05] MEDS ORDERED: INSULIN GLARGINE SOLOSTAR 100 UNITS/ML 3 ML PEN SC SCH (21:00)
--- NOTE | 2020-03-05 23:23 | Hospitalist Progress Note ---
Date of Service March 05, 2020 Assessment & Plan (1) Pneumonia due to COVID-19 virus: Pneumonia due to COVID-19 virus/acute respiratory failure with hypoxia- Admit to monitored bed Decadron 6 mg IV daily starting 02/27 Convalescent plasma, consent obtained, pt declined tx on admission however Remdesivir IV per protocol, starting 02/27 completed today. Ceftriaxone 1 g IV daily Azithromycin 500 mg IV daily Ventolin HFA 2 puffs 4 times daily, and 2 puffs every 2 hours as needed Blood cx neg O2 reqs improving, discharge is difficult as patient does not have insurance for oxygen. May need to pauy out of pocket will obtain 2 step in am. will continue to monitor Will recommend proning. (2) Acute respiratory failure with hypoxia: See above (3) Hyperglycemia: Glucose was 206 upon admission labs. Reported history of diabetes mellitus, but no medications noted. Placed in Accu-Cheks before meals and at bedtime with NovoLog coverage per scale A1c pending 10.6 (4) Hyponatremia: sodium improving. (5) Hypokalemia: See above (6) Hypomagnesemia: Monitor (7) DVT prophylaxis: Lovenox for DVT proph CM to assist in MA paperwork Admission and Anticipated Discharge Date Admission Date: February 28, 2020 Subjective Patient feels mildly better. No new complaints. he continues to cough Review of Systems Review of Systems: All systems reviewed & are unremarkable except as noted in HPI & below Physical Exam Physical Exam: Constitutional: WD/WN, vitals as above Eyes: normal visual waller by confrontation and + anicteric sclerae Neck: normal visual inspection and trachea midline Respiratory: normal respiratory effort; no respiratory distress Auscultation: no wheezes Cardiovascular: Rate/Rhythm: regular rate and regular rhythm Extremities: no edema Gastrointestinal (Abdomen): Inspection/Auscultation: abdomen not distended Percussion/Palpation: abdomen soft; abdomen nontender Musculoskeletal: Head/Neck/Chest: normocephalic and head atraumatic Skin: no rashes, warm and dry Neurologic: awake; not confused Speech / Cognition: normal speech Psychiatric: A+Ox3, euthymic affect Results & Data Results & Data ([facility]) Vital Signs (Past 12 Hours) Vital Signs Temp Pulse Resp BP Pulse Ox 03/05/20 19:51 37.1 C 78 18 125/91 92 03/05/20 15:51 37.2 C 70 19 125/82 92 PG Care Time/CCT Total # of Minutes Spent Total Time Spent with Patient: Total time spent is greater than 50% in coordination of care (as documented) at patient's floor/unit and/or counseling patient: Coding Level of Care Code 36491 Subseq Hosp Care Lvl 2 Diagnoses Pneumonia due to COVID-19 virus U07.1; J12.89 Acute respiratory failure with hypoxia J96.01 Hyperglycemia R73.9 Hyponatremia E87.1 Hypokalemia E87.6 Hypomagnesemia E83.42 DVT prophylaxis Z29.9
[2020-03-06] MEDS: ENOXAPARIN INJ 60 MG/0.6 ML SYR SQ SCH (06:35)
[2020-03-06] MEDS: dexAMETHasone 6 MG in SYRINGE 0 ML IV SCH (08:14)
[2020-03-06] MEDS: ASPIRIN 81 MG ECTAB PO SCH (08:15)
[2020-03-06] MEDS: INSULIN ASPART 100 UNITS/ML 3 ML PEN SC SCH ×2 (08:15→12:43)
[2020-03-06] MEDS: INSULIN HUMAN NPH SC SCH (08:17)
[2020-03-06] MEDS: NSS + 20MEQ KCL 20 MEQ/1,000 ML BAG IV SCH (12:43)
--- NOTE | 2020-03-12 22:49 | Discharge Summary ---
Date of Service March 06, 2020 Admission HPI Per Admitting Provider The patient is a 44-year-old male with no significant reported past medical history, who presents to the emergency department with shortness of breath that began 6 days ago, which has worsened significantly over the past 24 hours. He is a long-distance armored truck driver, his reports that they have not gone anywhere for 6 days, remaining at a local truck stop, due to severe shortness of breath. In the emergency department, patient underwent laboratories significant for the following: INR 1.2, sodium 130, potassium 3.3, glucose 205, AST 51, albumin 3.3 and COVID-19 PCR positive. Chest x-ray showed bilateral i nfiltrates. Temperature was 102.4 F, and pulse ox was 83% on room air, which increased to 96% on nonrebreather mask. Principal Diagnosis Pneumonia due to COVID 19 Discharge Exam Constitutional: WD/WN, vitals as above Eyes: normal visual waller by confrontation and + anicteric sclerae Neck: normal visual inspection and trachea midline Respiratory: normal respiratory effort; no respiratory distress Auscultation: no wheezes Cardiovascular: Rate/Rhythm: regular rate and regular rhythm Extremities: no edema Gastrointestinal (Abdomen): Inspection/Auscultation: abdomen not distended Percussion/Palpation: abdomen soft; abdomen nontender Musculoskeletal: Head/Neck/Chest: normocephalic and head atraumatic Skin: no rashes, warm and dry Neurologic: awake; not confused Speech / Cognition: normal speech Psychiatric: A+Ox3, euthymic affect Discharge Data Allergies Allergy/AdvReac Type Severity Reaction Status Date / Time Pork/Porcine Containing Allergy Verified 03/04/20 09:19 Products Consultations 02/28/20 00:31 ED Decision to Admit Stat Diabetes Follow up Diabetes Follow-up Needed for HgbA1c >9% Hospital Course (1) Pneumonia due to COVID-19 virus: Pneumonia due to COVID-19 virus/acute respiratory failure with hypoxia- Admit to monitored bed Decadron 6 mg IV daily starting 02/27 Convalescent plasma, consent obtained, pt declined tx on admission however Remdesivir IV per protocol, starting 02/27 completed today. Ceftriaxone 1 g IV daily Azithromycin 500 mg IV daily Ventolin HFA 2 puffs 4 times daily, and 2 puffs every 2 hours as needed Blood cx neg O2 reqs improving, needs oxygen on ambulation. discharged patient with oxygen. Patient is agreeable to plan. (2) Acute respiratory failure with hypoxia: See above (3) Hyperglycemia: Glucose was 206 upon admission labs. Reported history of diabetes mellitus, but no medications noted. Placed in Accu-Cheks before meals and at bedtime with NovoLog coverage per scale A1c pending 10.6 (4) Hyponatremia: sodium improving. (5) Hypokalemia: See above (6) Hypomagnesemia: Monitor (7) DVT prophylaxis: Lovenox for DVT proph CM to assist in MA paperwork Total Time Total Time Spent Total Time Spent (In Minutes): 32 Total Time Includes: Examination of the Patient, Discharge Planning and Medication Reconciliation Discharge Plan Discharge Items Patient Disposition: Home - Self-Care Reason For Visit: COVID-19 PNEUMONIA W/ HYPOXIA Discharge Diagnosis: COVID 19 Pneumonia with hypoxia Condition on Discharge: Fair Activity: Resume your previous activity Non-emergency contact: Primary Care Provider Call non-emergency contact if: you have any medication questions Follow-up/Referrals: PCP,NO [Primary Care Provider] - Diet: Regular and Carb Count or DM1 Addtl Attending Provider Instructions: [facility] at [address] [place] [id number] Closes at 7pm Followup with PCP in 1-2 weeks. A1C was 10. Coronavirus disease 2019 (COVID-19) is a virus that causes a respiratory illness. It is caused by a coronavirus called 2019 novel coronavirus (2019- nCoV). There are many types of coronavirus. Coronaviruses are a very common cause of bronchitis. They may sometimes cause lung infection(pneumonia). Symptoms can range from mild to severe respiratory illness. These viruses are also foundin some animals. COVID-19 was first found in people in [facility], in late 2019. In 2020, several cases of COVID-19 have been confirmed in the [place] Public health officials are working to find the source. How the virus spreads is not yet fully known. It may be spread through droplets of fluid that a person coughs or sneezes into the air. It may be spread if you touch a surface with virus on it, such as a handle or object, and then touch your mouth. What are the symptoms of COVID-19? Some people have no symptoms or mild symptoms. Symptoms may appear 2 to 14 days after contact with the virus. Symptoms can include: Fever Coughing Trouble breathing What are possible complications from COVID-19? In many cases, this virus can cause infection (pneumonia) in both lungs. In some cases, this can cause . How is COVID-19 treated? There is currently no medicine to treat the virus. Treatment is done to help your body while it fights the virus. This is known as supportive care. Supportive care may include: Pain medicine. These include acetaminophen and ibuprofen. They are used to help ease pain and reduce fever. Bed rest. This helps your body fight the illness. For severe illness, you may need to stay in the hospital. Care during severe illness may include: IV (intravenous) fluids.These are given through a vein to help keep your body hydrated. Oxygen. Supplemental oxygen or ventilation with a breathing machine (ventilator) may be given. This is done to keep enough oxygen in your body. If you have been diagnosed with COVID-19 Follow all instructions from your healthcare provider. Dont leave your home, except to get medical care. Call your healthcare providers office before going. They can prepare and give you instructions. This will help prevent the virus from spreading. Dont go to work, school, or public areas. Dont use public transport or taxis. Stay away from other people in your home. Have them wear face masks around you. Dont share household items or food. Wear a face mask if you can. This includes at home or in a medical facility. Cover your face with a tissue when you cough or sneeze. Throw the tissue away. Wash your hands. Wash your hands often. Caregivers should: Follow all instructions from healthcare staff. Wear a face mask and protective clothing as advised. Wash hands often. Keep track of the sick persons symptoms. Clean surfaces, fabrics, and laundry thoroughly. Keep other people away from the sick person. When to call your healthcare provider Call your healthcare provider: If youve recently traveled and have symptoms If you have been diagnosed with COVID-19 and your symptoms are worse To learn more To find out more about COVID-19, visit the CDC website at www.cdc.gov/coronaviru s/2019-ncov/index.html. The [employer]. [address] [place] [address], [place] [address]. All rights reserved. This information is not intended as a substitute for professional medical care. Always follow your healthcare professional's instructions. This information has been adapted from [employer] Pending Studies at Discharge: No Stand-Alone Forms: My [facility], Smoking Cessation Medications and DC Order Prescriptions: New glipizide 2.5 mg tablet extended release 24hr 2.5 mg PO DAILY Qty: 30 RF: 0 metformin 500 mg tablet 500 mg PO BID Qty: 60 RF: 0 lisinopril 10 mg tablet 10 mg PO DAILY Qty: 30 RF: 0 dexamethasone [Decadron] 6 mg tablet 6 mg PO DAILY Qty: 1 RF: 0 Continued aspirin [Ela Chewable Aspirin] 81 mg Tablet,Chewable 81 mg PO DAILY RF: 0 Discharge Orders: Discharge Order (Routine); Ordered 03/06/20 Ordered By: Carter Bruno/Other Patient Handouts: High Blood Sugar (Hyperglycemia), Managing Type 2 Diabetes, Diabetes: Meal Planning Admission Data Admit Date/Time: 02/28/20 01:56 Attending Provider: Carter Thomas Admit Provider: Ino Gonzalez Primary Care Provider: PCP,NO Other Providers: Carter Thomas Other Interventions: Discharge Summary Assessment (RN) Last Done: 03/06/20 16:57 Coding Level of Care Code D/C Day Management >30 mins Diagnoses Pneumonia due to COVID-19 virus U07.1; J12.89 Acute respiratory failure with hypoxia J96.01 Hyperglycemia R73.9 Hyponatremia E87.1 Hypokalemia E87.6 Hypomagnesemia E83.42 DVT prophylaxis Z29.9 Time Spent (min) 32
--- NOTE | 2020-03-24 10:53 | Coding Query ---
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 Please assist us with the question(s) below: Coding Question(s): Dr. Thomas, Per the progress notes and discharge summary, the patient was monitored for hypomagnesemia. Please review the patient's lab values below for magnesium levels and verify if, based upon your clinical judgement, you agree with this diagnosis: Reference Range: 1.8-2.4 mg/dl 02/27/20: Result - 2.5 H 02/29/20: Result - 2.8 H 03/01/20: Result - 2.7 H 03/02/20: Result - 2.4 03/04/20: Result - 2.3 Did the patient have: (x ) Hypermagnesemia ( ) Hypomagnesemia ( ) Normal magnesium level , no diagnosis ( ) Other, please explain ( ) Unable to determine Physician's Response(s): Thank you for your time, and happy holidays! FIDENCIO Ruff, [facility]
== END 2020-03-06 17:57 | disposition home or self-care (01) | DRG 177 ==
LOC: ED 22:41 → SUATTDRO 02-28 01:56 → 2W 02-28 01:56 → 2N 03-04 15:14